=== PATIENT | male | born 1935 | race Caucasian/White ===

== ENCOUNTER 2019-10-11 15:54 | Observation (INO) ==
[2019-10-11] MEDS ORDERED: SODIUM CHLORIDE 0.9% 1,000 ML IV STA (16:24)
[2019-10-11 16:54] LABS: Basophils % 0.3 % (0.0-0.8); Eosinophils # 0.1 10*3/uL (0.0-0.87); Eosinophils % 0.4 % (0.00-10.9); Hematocrit 46.9 VOL% (42.0-52.0); Hemoglobin 15.5 GM/DL (14.0-18.0); Immature Granulocytes % 0.4 %; Immature Granulocytes Absolute 0.06 #; Lymphocytes # 1.2 10*3/uL (1.4-4.0); Lymphocytes % 8.6 % (21.2-54.2); Mean Corpuscular Volume 93.1 FL (87-102); Mean Platelet Volume 10.9 FL (9.6-12.0); Monocytes % 4.8 % (1.7-12.7); Neutrophils % 85.5 % (38.7-73.9); Platelet Count 156 T/CUMM (130-400); Red Blood Count 5.04 MC/CUMM (3.8-5.5); Red Cell Distribution Width 13.2 % (9.3-17.3); White Blood Count 13.5 T/CUMM (4-12)
[2019-10-11 17:02] LABS: INR 1.1; PT Patient Result 11.6 SECS (9.6-12.2)
[2019-10-11 17:17] LABS: Albumin 3.9 G/DL (3.4-5.0); Bilirubin,Total 0.7 MG/DL (0.2-1.0); Calcium 8.8 MG/DL (8.5-10.1); Osmolality,Calculated 289.8 MOS/KG (273-304); Total Protein 7.4 G/DL (6.4-8.3)
[2019-10-11] MEDS ORDERED: ONDANSETRON 4 MG/2 ML VIAL IV PRN (18:17)
[2019-10-11] MEDS ORDERED: guaiFENesin/DM ER 600-30 MG TABLET PO PRN (18:17)
[2019-10-11] MEDS ORDERED: ACETAMINOPHEN 325 MG TABLET PO PRN (18:17)
[2019-10-11] MEDS ORDERED: diphenhydrAMINE CAP 25 MG CAPSULE PO PRN (18:17)
[2019-10-11] MEDS ORDERED: traZODone 50 MG TABLET PO PRN (18:17)
[2019-10-11] MEDS ORDERED: ZALEPLON 5 MG CAPSULE PO PRN (18:17)
[2019-10-11] MEDS ORDERED: ROSUVASTATIN 20 MG TABLET PO SCH (21:00)
[2019-10-11] MEDS ORDERED: TAMSULOSIN 0.4 MG CAPSULE PO SCH (21:00)
[2019-10-11 21:35] LABS: Apearance,Urine Slightly Hazy (Clear); Bacteria,Urine Many /HPF (Few); Bilirubin,Urine Negative (Negative); Blood, Urine Negative (Negative); Glucose,Urine (UA) Negative (Negative); Hyaline Casts,Urine 1 /LPF (0-3); Ketones,Urine 5 mg/dL (Negative); Mucus,Urine Occasional /LPF (Occasional); Nitrite,Urine Negative (Negative); Protein,Urine 30 MG/DL; RBC,Urine 6 /HPF (0-4); Sperm,Urine Moderate /HPF (Negative); Urine Color Yellow (Yellow); Urine Specific Gravity 1.016 (1.001-1.035); Urine Urobilinogen < 2.0 EU/DL (0.2-1.0); WBC,Urine 6 /HPF (0-6)
[2019-10-11] MEDS: DOCUSATE SODIUM 100 MG CAPSULE PO SCH (22:44)
[2019-10-11] MEDS: METOPROLOL SUCCINATE XL 25 MG TABLET PO SCH (22:45)
[2019-10-11] MEDS: SACUBITRIL/VALSARTAN 49-51 MG TABLET PO SCH (22:45)
[2019-10-11] MEDS: HEPARIN 5,000 UNIT/1 ML VIAL SUBCUT SCH (22:46)
[2019-10-12 04:43] LABS: Basophils % 0.4 % (0.0-0.8); Eosinophils # 0.1 10*3/uL (0.0-0.87); Hematocrit 44.8 VOL% (42.0-52.0); Immature Granulocytes % 0.3 %; Immature Granulocytes Absolute 0.03 #; Lymphocytes # 1.8 10*3/uL (1.4-4.0); Lymphocytes % 18.3 % (21.2-54.2); Mean Corpuscular HGB Conc 33.5 GM/DL (32-36); Mean Corpuscular Volume 93.3 FL (87-102); Mean Platelet Volume 11.7 FL (9.6-12.0); Monocytes % 10.1 % (1.7-12.7); Neutrophils % 69.9 % (38.7-73.9); Platelet Count 150 T/CUMM (130-400); Red Cell Distribution Width 13.2 % (9.3-17.3); White Blood Count 10.1 T/CUMM (4-12)
[2019-10-12 05:22] LABS: Albumin 3.4 G/DL (3.4-5.0); Bilirubin,Total 1.2 MG/DL (0.2-1.0); Calcium 8.4 MG/DL (8.5-10.1); Osmolality,Calculated 292.6 MOS/KG (273-304); Total Protein 6.6 G/DL (6.4-8.3)
[2019-10-12 05:28] LABS: Free T4 (Free Thyroxine) 0.74 NG/DL (0.76-1.46); Risk Ratio 2.47; Thyroid Stimulating Hormone 0.882 uIU/ml (0.358-3.74)
[2019-10-12] MEDS: HEPARIN 5,000 UNIT/1 ML VIAL SUBCUT SCH (05:59)
[2019-10-12] MEDS ORDERED: cefTRIAXone 1,000 MG in SYRINGE 1 EACH IV SCH ×2 (07:00→09:00)
[2019-10-12 07:46] LABS: CKMB % 2.1 %; Troponin I 0.026 NG/ML (0.00-0.045)
[2019-10-12] MEDS: DOCUSATE SODIUM 100 MG CAPSULE PO SCH (08:57)
[2019-10-12] MEDS: METOPROLOL SUCCINATE XL 25 MG TABLET PO SCH (08:57)
[2019-10-12] MEDS ORDERED: PANTOPRAZOLE 40 MG TABLET PO SCH (09:00)
[2019-10-12] MEDS ORDERED: MULTIVITAMIN (CENTRUM) TABLET PO SCH (09:00)
[2019-10-12] MEDS ORDERED: POLYCARBOPHIL 625 MG TABLET PO SCH (09:00)
[2019-10-12] MEDS ORDERED: ASPIRIN EC 81 MG TABLET PO SCH (09:00)
[2019-10-12] MEDS: SACUBITRIL/VALSARTAN 49-51 MG TABLET PO SCH (09:03)
[2019-10-12 10:46] LABS: CKMB % 2.2 %; Troponin I 0.018 NG/ML (0.00-0.045)
[2019-10-12] MEDS ORDERED: CLOPIDOGREL 75 MG TABLET PO ONE (11:35)
[2019-10-12 12:25] VITALS: BP 125/76
[2019-10-13] MEDS ORDERED: COENZYME Q10 100 MG CAPSULE PO SCH (09:00)
[2019-10-13] MEDS ORDERED: ROSUVASTATIN 20 MG TABLET PO SCH (09:00)
== END 2019-10-12 14:22 | disposition home health service (06) ==
LOC: EDUNIT# → EDBD → N.EDINP 15:54 → N.ED 15:54 → N.2W 19:23
PROVIDERS: ADMIT Internal Medicine; ATTEND Internal Medicine

== ENCOUNTER 2020-07-03 16:42 | Inpatient (IN) ==
[2020-07-03 18:01] LABS: Basophils % 0.2 % (0.0-0.8); Hematocrit 43.2 VOL% (42.0-52.0); Hemoglobin 14.2 GM/DL (14.0-18.0); Immature Granulocytes % 0.4 %; Immature Granulocytes Absolute 0.02 #; Lymphocytes # 0.6 10*3/uL (1.4-4.0); Lymphocytes % 11.6 % (21.2-54.2); Mean Corpuscular HGB Conc 32.9 GM/DL (32-36); Mean Corpuscular Volume 91.9 FL (87-102); Mean Platelet Volume 9.9 FL (9.6-12.0); Monocytes % 4.8 % (1.7-12.7); Platelet Count 203 T/CUMM (130-400); Red Cell Distribution Width 13.2 % (9.3-17.3); White Blood Count 4.8 T/CUMM (4-12)
[2020-07-03 18:36] LABS: Albumin 3.1 G/DL (3.4-5.0); Bilirubin,Total 0.9 MG/DL (0.2-1.0); Calcium 9.2 MG/DL (8.5-10.1); Osmolality,Calculated 280.7 MOS/KG (273-304); Total Protein 7.5 G/DL (6.4-8.3)
[2020-07-03] MEDS ORDERED: DEXAMETHASONE 4 MG/1 ML VIAL IV STA (18:52)
[2020-07-03] MEDS ORDERED: ONDANSETRON 4 MG/2 ML VIAL IV STA (18:52)
[2020-07-03] MEDS ORDERED: SODIUM CHLORIDE 0.9% 500 ML IV STA (18:52)
[2020-07-03 19:16] LABS: Ferritin 641.1 ng/ml (26-388)
[2020-07-03 19:31] LABS: ABG Base Excess -2.2 MMOL/L (-2.5-2.5); ABG HCO3 22.5 MMOL/L (20-26); ABG Oxygen Saturation 95.9 % (95-100); ABG PCO2 28.9 MM HG (35-48); ABG PH 7.456 (7.35-7.45); ABG PO2 78.1 MM HG (80-95); ABG TCO2 17.5 MMOL/L (23-27)
[2020-07-03] MEDS ORDERED: PIPERACILLIN/TAZOBACTAM 3,375 MG in SODIUM CHLORIDE 0.9% 100 ML IV STA (19:53)
[2020-07-03] MEDS ORDERED: GLUCAGON 1 MG VIAL IM PRN (20:55)
[2020-07-03] MEDS ORDERED: ACETAMINOPHEN 325 MG TABLET PO PRN (20:55)
[2020-07-03] MEDS ORDERED: DEXTROSE 50% 25 GM/50 ML VIAL IV PRN (20:55)
[2020-07-03 21:38] LABS: Lymphocytes 10 % (20-55); Platelet Estimate Adequate; Segmented Neutrophils 84 % (50-85); Total Cells Counted 100
[2020-07-03] MEDS ORDERED: SODIUM CHLORIDE 0.45% 1,000 ML IV SCH (22:00)
[2020-07-03] MEDS: cefTRIAXone 1,000 MG in SYRINGE 1 EACH IV SCH (22:33)
[2020-07-03] MEDS: ROSUVASTATIN 20 MG TABLET PO SCH (22:34)
[2020-07-03] MEDS: DOCUSATE SODIUM 100 MG CAPSULE PO SCH (22:34)
[2020-07-04 04:45] LABS: Basophils % 0.2 % (0.0-0.8); Hematocrit 43.5 VOL% (42.0-52.0); Hemoglobin 14.3 GM/DL (14.0-18.0); Immature Granulocytes % 0.8 %; Immature Granulocytes Absolute 0.04 #; Lymphocytes # 0.7 10*3/uL (1.4-4.0); Lymphocytes % 12.4 % (21.2-54.2); Mean Corpuscular HGB Conc 32.9 GM/DL (32-36); Mean Corpuscular Volume 92.6 FL (87-102); Mean Platelet Volume 10.2 FL (9.6-12.0); Monocytes % 3.8 % (1.7-12.7); Neutrophils % 82.8 % (38.7-73.9); Platelet Count 232 T/CUMM (130-400); Red Cell Distribution Width 13.2 % (9.3-17.3); White Blood Count 5.3 T/CUMM (4-12)
[2020-07-04 05:18] LABS: Microcytosis Slight; Ovalocytes Slight; Platelet Estimate Normal
[2020-07-04 05:19] LABS: Risk Ratio 2.6; Thyroid Stimulating Hormone 0.392 uIU/ml (0.358-3.74); VLDL CHOLESTEROL 11.8 MG/DL
[2020-07-04 07:59] LABS: ABG Base Excess -1.5 MMOL/L (-2.5-2.5); ABG HCO3 23.1 MMOL/L (20-26); ABG Oxygen Saturation 92.4 % (95-100); ABG PCO2 27.8 MM HG (35-48); ABG PH 7.479 (7.35-7.45); ABG PO2 62.6 MM HG (80-95); ABG TCO2 17.7 MMOL/L (23-27); Allen Test Positive
[2020-07-04 08:11] LABS: Ferritin 668.4 ng/ml (26-388)
[2020-07-04] MEDS: DEXAMETHASONE INJ 6 MG in SODIUM CHLORIDE 0.9% 50 ML IV SCH (09:30)
[2020-07-04] MEDS: ENOXAPARIN 40 MG/0.4 ML SYRINGE SUBCUT SCH ×2 (09:31→20:21)
[2020-07-04] MEDS: METOPROLOL SUCCINATE XL 25 MG TABLET PO SCH ×2 (09:31→20:21)
[2020-07-04] MEDS: ASPIRIN EC 81 MG TABLET PO SCH (09:31)
[2020-07-04] MEDS: AZITHROMYCIN 250 MG TABLET PO SCH (09:31)
[2020-07-04] MEDS: SACUBITRIL/VALSARTAN 49-51 MG TABLET PO SCH ×2 (09:31→20:21)
[2020-07-04] MEDS: PANTOPRAZOLE 40 MG TABLET PO SCH (09:32)
[2020-07-04] MEDS ORDERED: SODIUM CHLORIDE 0.9% 1,000 ML IV PRN (09:56)
[2020-07-04 15:11] LABS: ABG Base Excess -1.2 MMOL/L (-2.5-2.5); ABG HCO3 23.3 MMOL/L (20-26); ABG Oxygen Saturation 94.7 % (95-100); ABG PCO2 28.7 MM HG (35-48); ABG PH 7.475 (7.35-7.45); ABG PO2 70.8 MM HG (80-95); ABG TCO2 18.3 MMOL/L (23-27)
[2020-07-04] MEDS ORDERED: REMDESIVIR 200 MG in SODIUM CHLORIDE 0.9% 210 ML IV ONE (17:00)
[2020-07-04] MEDS: DOCUSATE SODIUM 100 MG CAPSULE PO SCH (20:20)
[2020-07-04] MEDS: TAMSULOSIN 0.4 MG CAPSULE PO SCH (20:20)
[2020-07-04] MEDS: ROSUVASTATIN 20 MG TABLET PO SCH (20:20)
[2020-07-04] MEDS: cefTRIAXone 1,000 MG in SYRINGE 1 EACH IV SCH (21:10)
[2020-07-05 04:12] LABS: Albumin 2.6 G/DL (3.4-5.0); Blood Urea Nitrogen 31 MG/DL (7-18); Calcium 8.3 MG/DL (8.5-10.1); Glucose 117 MG/DL (74-106); Osmolality,Calculated 284.5 MOS/KG (273-304)
[2020-07-05 04:13] LABS: Alanine Aminotransferase 27 U/L (16-61); Aspartate Amino Transferase 36 U/L (0-37); Estimated Glom Filtration Rate 70 ML/MIN
[2020-07-05 04:14] LABS: Bilirubin,Total < 0.39 MG/DL (0.2-1.0); Total Protein 6.4 G/DL (6.4-8.3)
[2020-07-05 04:16] LABS: Alkaline Phosphatase 44 U/L (45-117)
[2020-07-05 04:42] LABS: Basophils % 0.1 % (0.0-0.8); Hematocrit 39.9 VOL% (42.0-52.0); Immature Granulocytes Absolute 0.14 #; Lymphocytes % 7.3 % (21.2-54.2); Mean Corpuscular HGB Conc 32.6 GM/DL (32-36); Mean Corpuscular Volume 93.7 FL (87-102); Mean Platelet Volume 9.9 FL (9.6-12.0); Monocytes % 3.3 % (1.7-12.7); Neutrophils % 88.3 % (38.7-73.9); Platelet Count 256 T/CUMM (130-400); Red Blood Count 4.26 MC/CUMM (3.8-5.5); Red Cell Distribution Width 13.5 % (9.3-17.3)
[2020-07-05 04:54] LABS: Sedimentation Rate-Westergren 60 MM/HR (0-20)
[2020-07-05] MEDS: SACUBITRIL/VALSARTAN 49-51 MG TABLET PO SCH ×2 (08:51→21:35)
[2020-07-05] MEDS: ENOXAPARIN 40 MG/0.4 ML SYRINGE SUBCUT SCH ×2 (08:51→21:36)
[2020-07-05] MEDS: AZITHROMYCIN 250 MG TABLET PO SCH (08:53)
[2020-07-05] MEDS: ASPIRIN EC 81 MG TABLET PO SCH (08:53)
[2020-07-05] MEDS: PANTOPRAZOLE 40 MG TABLET PO SCH (08:53)
[2020-07-05] MEDS: METOPROLOL SUCCINATE XL 25 MG TABLET PO SCH ×2 (08:53→21:36)
[2020-07-05 10:18] LABS: ABG Base Excess 0.2 MMOL/L (-2.5-2.5); ABG HCO3 24.5 MMOL/L (20-26); ABG Oxygen Saturation 93.2 % (95-100); ABG PCO2 30.6 MM HG (35-48); ABG PO2 65.2 MM HG (80-95); ABG TCO2 19.9 MMOL/L (23-27); Allen Test Positive; Pt O2 Delivery Device Other
[2020-07-05] MEDS: DEXAMETHASONE INJ 6 MG in SODIUM CHLORIDE 0.9% 50 ML IV SCH (10:20)
[2020-07-05] MEDS: REMDESIVIR 100 MG in SODIUM CHLORIDE 0.9% 230 ML IV SCH (16:18)
[2020-07-05] MEDS: cefTRIAXone 1,000 MG in SYRINGE 1 EACH IV SCH (21:34)
[2020-07-05] MEDS: ROSUVASTATIN 20 MG TABLET PO SCH (21:34)
[2020-07-05] MEDS: TAMSULOSIN 0.4 MG CAPSULE PO SCH (21:36)
[2020-07-05] MEDS: DOCUSATE SODIUM 100 MG CAPSULE PO SCH (21:36)
[2020-07-06 05:04] LABS: Basophils % 0.1 % (0.0-0.8); Hematocrit 40.5 VOL% (42.0-52.0); Hemoglobin 13.3 GM/DL (14.0-18.0); Immature Granulocytes % 0.9 %; Immature Granulocytes Absolute 0.12 #; Lymphocytes # 0.9 10*3/uL (1.4-4.0); Lymphocytes % 7.1 % (21.2-54.2); Mean Corpuscular HGB Conc 32.8 GM/DL (32-36); Mean Corpuscular Volume 92.7 FL (87-102); Monocytes % 4.5 % (1.7-12.7); Neutrophils % 87.4 % (38.7-73.9); Platelet Count 271 T/CUMM (130-400); Red Blood Count 4.37 MC/CUMM (3.8-5.5); Red Cell Distribution Width 13.3 % (9.3-17.3); White Blood Count 13.2 T/CUMM (4-12)
[2020-07-06 06:27] LABS: Sedimentation Rate-Westergren 47 MM/HR (0-20)
[2020-07-06 06:56] LABS: Albumin 2.6 G/DL (3.4-5.0); Bilirubin,Total 0.4 MG/DL (0.2-1.0); Calcium 8.3 MG/DL (8.5-10.1); Osmolality,Calculated 283.5 MOS/KG (273-304); Total Protein 6.5 G/DL (6.4-8.3)
[2020-07-06] MEDS: PANTOPRAZOLE 40 MG TABLET PO SCH (10:03)
[2020-07-06] MEDS: ASPIRIN EC 81 MG TABLET PO SCH (10:04)
[2020-07-06] MEDS: METOPROLOL SUCCINATE XL 25 MG TABLET PO SCH ×2 (10:04→21:12)
[2020-07-06] MEDS: AZITHROMYCIN 250 MG TABLET PO SCH (10:04)
[2020-07-06] MEDS: SACUBITRIL/VALSARTAN 49-51 MG TABLET PO SCH ×2 (10:04→21:11)
[2020-07-06] MEDS: ENOXAPARIN 40 MG/0.4 ML SYRINGE SUBCUT SCH ×2 (10:04→21:12)
[2020-07-06] MEDS: DEXAMETHASONE INJ 6 MG in SODIUM CHLORIDE 0.9% 50 ML IV SCH (10:05)
[2020-07-06 11:12] LABS: ABG Base Excess 0.7 MMOL/L (-2.5-2.5); ABG Oxygen Saturation 95.1 % (95-100); ABG PCO2 29.9 MM HG (35-48); ABG PH 7.493 (7.35-7.45); ABG PO2 71.7 MM HG (80-95); ABG TCO2 19.8 MMOL/L (23-27); Allen Test Positive
[2020-07-06] MEDS: REMDESIVIR 100 MG in SODIUM CHLORIDE 0.9% 230 ML IV SCH (17:37)
[2020-07-06] MEDS: DOCUSATE SODIUM 100 MG CAPSULE PO SCH (21:11)
[2020-07-06] MEDS: ROSUVASTATIN 20 MG TABLET PO SCH (21:12)
[2020-07-06] MEDS: TAMSULOSIN 0.4 MG CAPSULE PO SCH (21:12)
[2020-07-06] MEDS: cefTRIAXone 1,000 MG in SYRINGE 1 EACH IV SCH (21:14)
[2020-07-07 06:11] LABS: Basophils % 0.2 % (0.0-0.8); Hematocrit 39.4 VOL% (42.0-52.0); Hemoglobin 13.1 GM/DL (14.0-18.0); Immature Granulocytes % 1.3 %; Immature Granulocytes Absolute 0.13 #; Lymphocytes # 1.1 10*3/uL (1.4-4.0); Lymphocytes % 10.8 % (21.2-54.2); Mean Corpuscular HGB Conc 33.2 GM/DL (32-36); Mean Corpuscular Volume 91.4 FL (87-102); Mean Platelet Volume 9.9 FL (9.6-12.0); Monocytes % 6.6 % (1.7-12.7); Neutrophils % 81.1 % (38.7-73.9); Platelet Count 248 T/CUMM (130-400); Red Blood Count 4.31 MC/CUMM (3.8-5.5); Red Cell Distribution Width 13.2 % (9.3-17.3); White Blood Count 9.9 T/CUMM (4-12)
[2020-07-07 06:36] LABS: Albumin 2.4 G/DL (3.4-5.0); Bilirubin,Total 1.1 MG/DL (0.2-1.0); Calcium 7.9 MG/DL (8.5-10.1); Total Protein 5.9 G/DL (6.4-8.3)
[2020-07-07 07:19] LABS: Sedimentation Rate-Westergren 60 MM/HR (0-20)
[2020-07-07] MEDS: SACUBITRIL/VALSARTAN 49-51 MG TABLET PO SCH ×2 (09:55→20:30)
[2020-07-07] MEDS: AZITHROMYCIN 250 MG TABLET PO SCH (09:55)
[2020-07-07] MEDS: DEXAMETHASONE INJ 6 MG in SODIUM CHLORIDE 0.9% 50 ML IV SCH (09:55)
[2020-07-07] MEDS: PANTOPRAZOLE 40 MG TABLET PO SCH (09:55)
[2020-07-07] MEDS: ASPIRIN EC 81 MG TABLET PO SCH (09:55)
[2020-07-07] MEDS: ENOXAPARIN 40 MG/0.4 ML SYRINGE SUBCUT SCH ×2 (09:55→20:31)
[2020-07-07] MEDS: METOPROLOL SUCCINATE XL 25 MG TABLET PO SCH ×2 (09:55→20:30)
[2020-07-07] MEDS: REMDESIVIR 100 MG in SODIUM CHLORIDE 0.9% 230 ML IV SCH (18:08)
[2020-07-07] MEDS: TAMSULOSIN 0.4 MG CAPSULE PO SCH (20:30)
[2020-07-07] MEDS: ROSUVASTATIN 20 MG TABLET PO SCH (20:30)
[2020-07-07] MEDS: DOCUSATE SODIUM 100 MG CAPSULE PO SCH (20:31)
[2020-07-07] MEDS: cefTRIAXone 1,000 MG in SYRINGE 1 EACH IV SCH (21:05)
[2020-07-08 05:29] LABS: Basophils % 0.2 % (0.0-0.8); Eosinophils % 0.2 % (0.00-10.9); Hemoglobin 12.8 GM/DL (14.0-18.0); Immature Granulocytes % 2.1 %; Immature Granulocytes Absolute 0.23 #; Lymphocytes # 1.3 10*3/uL (1.4-4.0); Lymphocytes % 11.7 % (21.2-54.2); Mean Corpuscular HGB Conc 32.8 GM/DL (32-36); Mean Corpuscular Volume 92.4 FL (87-102); Monocytes % 6.5 % (1.7-12.7); Neutrophils % 79.3 % (38.7-73.9); Platelet Count 274 T/CUMM (130-400); Red Blood Count 4.22 MC/CUMM (3.8-5.5); Red Cell Distribution Width 13.3 % (9.3-17.3); White Blood Count 10.9 T/CUMM (4-12)
[2020-07-08 05:45] LABS: Alanine Aminotransferase 38 U/L (16-61); Albumin 2.2 G/DL (3.4-5.0); Alkaline Phosphatase 40 U/L (45-117); Aspartate Amino Transferase 32 U/L (0-37); Bilirubin,Total < 0.39 MG/DL (0.2-1.0); Blood Urea Nitrogen 28 MG/DL (7-18); Calcium 8.1 MG/DL (8.5-10.1); Estimated Glom Filtration Rate 70 ML/MIN; Glucose 100 MG/DL (74-106); Osmolality,Calculated 286.3 MOS/KG (273-304); Total Protein 5.7 G/DL (6.4-8.3)
[2020-07-08 07:23] LABS: Sedimentation Rate-Westergren 46 MM/HR (0-20)
[2020-07-08] MEDS: PANTOPRAZOLE 40 MG TABLET PO SCH (08:40)
[2020-07-08] MEDS: DEXAMETHASONE INJ 6 MG in SODIUM CHLORIDE 0.9% 50 ML IV SCH (08:40)
[2020-07-08] MEDS: METOPROLOL SUCCINATE XL 25 MG TABLET PO SCH (08:41)
[2020-07-08] MEDS: ASPIRIN EC 81 MG TABLET PO SCH (08:41)
[2020-07-08] MEDS: SACUBITRIL/VALSARTAN 49-51 MG TABLET PO SCH (08:41)
[2020-07-08] MEDS: AZITHROMYCIN 250 MG TABLET PO SCH (08:41)
[2020-07-08] MEDS: ENOXAPARIN 40 MG/0.4 ML SYRINGE SUBCUT SCH (08:43)
[2020-07-08] MEDS ORDERED: REMDESIVIR 100 MG in SODIUM CHLORIDE 0.9% 230 ML IV ONE (10:00)
[2020-07-08 11:39] VITALS: BP 108/60
[2020-07-08 20:56] LABS: Specimen Source THROAT
== END 2020-07-08 13:20 | disposition home health service (06) | DRG 177 ==
LOC: N.ED 16:42 → N.EDINP 20:55 → N.2E 21:23
PROVIDERS: ADMIT Internal Medicine; ATTEND Internal Medicine

== ENCOUNTER 2020-09-27 05:33 | Inpatient (IN) ==
[2020-09-21 11:17] LABS: Basophils # 0.1 10*3/uL (0.0-0.2); Basophils % 0.8 % (0.0-0.8); Eosinophils # 0.3 10*3/uL (0.0-0.87); Eosinophils % 4.3 % (0.00-10.9); Hematocrit 44.3 VOL% (42.0-52.0); Hemoglobin 14.5 GM/DL (14.0-18.0); Immature Granulocytes % 0.2 %; Immature Granulocytes Absolute 0.01 #; Lymphocytes # 1.5 10*3/uL (1.4-4.0); Lymphocytes % 23.5 % (21.2-54.2); Mean Corpuscular HGB Conc 32.7 GM/DL (32-36); Mean Corpuscular Volume 93.9 FL (87-102); Mean Platelet Volume 10.9 FL (9.6-12.0); Monocytes % 10.9 % (1.7-12.7); Neutrophils % 60.3 % (38.7-73.9); Platelet Count 165 T/CUMM (130-400); Red Blood Count 4.72 MC/CUMM (3.8-5.5); Red Cell Distribution Width 13.7 % (9.3-17.3); White Blood Count 6.3 T/CUMM (4-12)
[2020-09-21 11:20] LABS: Bilirubin,Urine Negative (Negative); Blood, Urine Negative (Negative); Glucose,Urine (UA) Negative (Negative); Ketones,Urine Negative (Negative); Mucus,Urine Occasional /LPF (Occasional); Nitrite,Urine Negative (Negative); Protein,Urine 30 MG/DL; RBC,Urine 5 /HPF (0-4); Sperm,Urine Occasional /HPF (Negative); Urine Appearance Slightly Hazy (Clear); Urine Color Yellow (Yellow); Urine Specific Gravity 1.019 (1.001-1.035); Urine Urobilinogen < 2.0 EU/DL (0.2-1.0); WBC,Urine 1 /HPF (0-6)
[2020-09-21 11:48] LABS: Calcium 8.8 MG/DL (8.5-10.1)
[2020-09-27] MEDS ORDERED: cefTRIAXone 1,000 MG VIAL ONE (06:03)
[2020-09-27] MEDS ORDERED: ALVIMOPAN 12 MG CAPSULE ONE (06:03)
[2020-09-27] MEDS ORDERED: FAMOTIDINE 20 MG TABLET PO ONE (06:24)
[2020-09-27] MEDS ORDERED: DIAZEPAM 5 MG TABLET PO ONE (06:24)
[2020-09-27] MEDS ORDERED: ACETAMINOPHEN 500 MG TABLET PO ONE (06:24)
[2020-09-27] MEDS ORDERED: GABAPENTIN 400 MG CAPSULE PO ONE (06:24)
[2020-09-27] MEDS ORDERED: LACTATED RINGERS 1,000 ML IV SCH (06:30)
[2020-09-27] MEDS ORDERED: fentaNYL 100 MCG/2 ML VIAL ONE ×2 (06:37→09:12)
[2020-09-27] MEDS ORDERED: ALVIMOPAN 12 MG CAPSULE PO ONE (06:49)
[2020-09-27] MEDS ORDERED: propofoL 200 MG/20 ML VIAL IV ONE (07:28)
[2020-09-27] MEDS ORDERED: ROCURONIUM 50 MG/5 ML VIAL IV ONE ×2 (07:28→08:45)
[2020-09-27] MEDS ORDERED: LIDOCAINE 2% 5 ML VIAL ONE (07:28)
[2020-09-27] MEDS ORDERED: ePHEDrine 50 MG/ML VIAL ONE (07:29)
[2020-09-27] MEDS ORDERED: PHENYLEPHRINE 1 MG/10 ML SYRINGE IV ONE ×2 (08:25→10:30)
[2020-09-27] MEDS ORDERED: ACETAMINOPHEN 1,000 MG/100 ML VIAL IV ONE (09:15)
[2020-09-27] MEDS ORDERED: SEVOFLURANE 1 UNIT/15 MINUTE INH ONE ×13 (09:35→10:33)
[2020-09-27] MEDS ORDERED: ONDANSETRON 4 MG/2 ML VIAL ONE (09:35)
[2020-09-27] MEDS ORDERED: GLYCOPYRROLATE 0.4 MG/2 ML VIAL ONE (09:35)
[2020-09-27] MEDS ORDERED: NEOSTIGMINE 10 MG/10 ML VIAL ONE (09:35)
[2020-09-27] MEDS ORDERED: LACTATED RINGERS 2,000 ML IV ONE ×2 (09:38→10:33)
[2020-09-27] MEDS ORDERED: ONDANSETRON 4 MG/2 ML VIAL IV PRN (10:36)
[2020-09-27] MEDS ORDERED: NALOXONE 0.4 MG/ML VIAL IV PRN (10:36)
[2020-09-27] MEDS ORDERED: HYDROmorphone PCA 30 MG/30 ML SYRINGE IV SCH (11:00)
[2020-09-27 12:16] LABS: Hematocrit 42.4 VOL% (42.0-52.0); Hemoglobin 13.7 GM/DL (14.0-18.0)
[2020-09-27] MEDS: SODIUM CHLORIDE 0.9% 1,000 ML IV SCH (14:14)
[2020-09-27] MEDS: TAMSULOSIN 0.4 MG CAPSULE PO SCH (18:10)
[2020-09-27] MEDS: METOPROLOL SUCCINATE XL 25 MG TABLET PO SCH (21:16)
[2020-09-27] MEDS: ROSUVASTATIN 20 MG TABLET PO SCH (21:17)
[2020-09-27] MEDS: ALVIMOPAN 12 MG CAPSULE PO SCH (21:17)
[2020-09-27] MEDS: POLYCARBOPHIL 625 MG TABLET PO SCH (21:17)
[2020-09-27] MEDS: SACUBITRIL/VALSARTAN 49-51 MG TABLET PO SCH (21:17)
[2020-09-28] MEDS: SODIUM CHLORIDE 0.9% 1,000 ML IV SCH ×2 (03:35→10:47)
[2020-09-28 06:15] LABS: Basophils % 0.2 % (0.0-0.8); Eosinophils % 0.1 % (0.00-10.9); Hematocrit 42.3 VOL% (42.0-52.0); Hemoglobin 13.8 GM/DL (14.0-18.0); Immature Granulocytes % 0.4 %; Immature Granulocytes Absolute 0.05 #; Lymphocytes # 1.1 10*3/uL (1.4-4.0); Lymphocytes % 9.9 % (21.2-54.2); Mean Corpuscular HGB Conc 32.6 GM/DL (32-36); Mean Corpuscular Volume 93.2 FL (87-102); Monocytes % 7.1 % (1.7-12.7); Neutrophils % 82.3 % (38.7-73.9); Platelet Count 148 T/CUMM (130-400); Red Blood Count 4.54 MC/CUMM (3.8-5.5); Red Cell Distribution Width 13.8 % (9.3-17.3); White Blood Count 11.2 T/CUMM (4-12)
[2020-09-28 06:39] LABS: Calcium 8.6 MG/DL (8.5-10.1); Osmolality,Calculated 283.5 MOS/KG (273-304)
[2020-09-28] MEDS: PANTOPRAZOLE 40 MG TABLET PO SCH (08:58)
[2020-09-28] MEDS: MAGNESIUM CHLORIDE 64 MG TABLET PO SCH (08:58)
[2020-09-28] MEDS: POLYCARBOPHIL 625 MG TABLET PO SCH ×2 (08:58→21:32)
[2020-09-28] MEDS: ALVIMOPAN 12 MG CAPSULE PO SCH ×2 (08:59→21:32)
[2020-09-28] MEDS: TAMSULOSIN 0.4 MG CAPSULE PO SCH (18:21)
[2020-09-28] MEDS: SACUBITRIL/VALSARTAN 49-51 MG TABLET PO SCH (21:32)
[2020-09-28] MEDS: METOPROLOL SUCCINATE XL 25 MG TABLET PO SCH (21:33)
[2020-09-28] MEDS: ROSUVASTATIN 20 MG TABLET PO SCH (21:33)
[2020-09-29 08:09] VITALS: BP 132/78
[2020-09-29] MEDS: POLYCARBOPHIL 625 MG TABLET PO SCH (09:16)
[2020-09-29] MEDS: MAGNESIUM CHLORIDE 64 MG TABLET PO SCH (09:16)
[2020-09-29] MEDS: PANTOPRAZOLE 40 MG TABLET PO SCH (09:17)
[2020-09-29] MEDS: ALVIMOPAN 12 MG CAPSULE PO SCH (09:17)
[2020-09-29] MEDS ORDERED: POLYETHYLENE GLYCOL POWDER 17 GM PACK PO ONE (09:58)
== END 2020-09-29 12:14 | disposition home or self-care (01) | DRG 658 ==
LOC: N.OR 05:33 → N.SDSINP 05:35 → N.4E 11:44
PROVIDERS: ADMIT Urology; ATTEND Urology